=== PATIENT | male | born 1965 | race Caucasian/White ===

== ENCOUNTER 2021-07-04 12:29 | Emergency (ER) | payer MEDICARE, MEDICAID, SELFPAY ==
[2021-07-04 12:29] VITALS: BP 136/102; PULSE 115; RESP 18; TEMP 36.4; O2SAT 99; BMI 25.8
--- NOTE | 2021-07-04 12:55 | EX.ED.DYSGE1 ---
HPI History of Present Illness Chief Complaint: Nosebleed Detail of Chief Complaint: Epistaxis right side Informant: other Onset/Context/Timing Onset: Today Context: Sudden Onset Timing: Intermittent Quality: Blood from right naris Location: Right naris Current Severity: Mild Maximum Severity: Moderate Worsened by: Suspect self-induced/trauma Relieved by: Stops on its own Associated Symptoms Associated Symptoms: Unable to determine because of cognitive impairment Narrative Narrative: Patient is a cognitively impaired middle-age male who presents with intermittent acute bleeding from the right naris. Uncertain whether this is trauma induced. Staff is suspicious that he is picking at it and may have a laceration. History is limited because of his cognitive impairment Prior similar symptoms: No Recent Illness/Hospitalization: No PFSH PFSH Medical History no medical history no medical history Home Medications Trazodone Hcl 150 mg PO QHS 06/14/14 [History Last Taken Unknown] gabapentin 300 mg PO QHS 06/14/14 [History Last Taken Unknown] gabapentin 600 mg PO BID 06/14/14 [History Last Taken Unknown] hydroxyzine pamoate 50 mg PO BID 06/14/14 [History Last Taken Unknown] risperidone [Risperdal M-Tab] 1 mg PO 4X/DAY 06/14/14 [History Last Taken Unknown] simvastatin 20 mg PO QHS 06/14/14 [History Last Taken Unknown] valproic acid [Depakene] 250 mg PO TID 06/14/14 [History Last Taken Unknown] valproic acid [Depakene] 500 mg PO QHS 06/14/14 [History Last Taken Unknown] Allergy/AdvReac Type Severity Reaction Status Date / Time No Known Allergies Allergy Verified 07/04/21 12:31 Social History (Updated 07/04/21 @ 12:[address] Carl Delgado MD) household members: other housing: other details: senior living Smoking Status: Never smoker substance use type: does not use ROS ROS ED Review of Systems ROS Unobtainable: due to mental status Constitutional Constitutional ED: Denies fever(s) Eyes Eyes: Denies change in vision ENT ENT ED: Denies ear pain, rhinorrhea or sore throat Cardiovascular Cardiovascular: Denies chest pain Respiratory/Chest Respiratory/Chest: Denies cough or dyspnea Gastrointestinal Gastrointestinal: Denies diarrhea or vomiting Hematologic/Lymphatic Hematologic/Lymphatic: Denies anemia, easy bleeding or easy bruising EXAM Physical Exam Const Vital Signs: 07/04/21 12:29 Temperature 97.5 F L Temperature Source Temporal Pulse Rate 115 H Respiratory Rate 18 Blood Pressure 136/102 H Blood Pressure Mean 113 Pulse Ox 99 Oxygen Delivery Method Room Air Positive well nourished and well developed General Appearance ED: well developed and NAD; Negative for cyanotic or diaphoretic HEENT Reports moist mucous membranes HEENT Narrative: Blood noted in the right vestibule. There is no obvious source of bleeding over Roselyn box plexus on the right or left. There is no blood in the posterior pharynx. Exam limited because patient rocks and unable to stop him from rocking. Negative for trauma or tenderness Eyes PERRL and EOMs intact bilaterally General Eye ED: Negative for pale conjunctiva or scleral icterus Neck no lymphadenopathy, supple and no JVD Resp normal respiratory effort and clear to auscultation bilaterally Cardio regular rate, regular rhythm, S1 normal heart sound, S2 normal heart sound and no murmurs Neuro No oriented x3 Sensorium / Orientation: alert Skin no rashes or lesions noted and no wounds MDM MDM MDM Narrative Medical decision making narrative: Patient with epistaxis on the right. Presently there is no bleeding. We will have nurse apply clip and reevaluate in 15 minutes. Patient was not reassessed until 1455. He has had no further bleeding. Appears that the bleeding is due to self-inflicted trauma to the right vestibule. Will discharge to home since he has not had bleeding since the initial exam. Discharge Plan Triage Chief Complaint: Nosebleed ED Provider: Carl Delgado Dx/Rx/DC Orders Clinical Impression: Right-sided epistaxis Instructions: ED Epistaxis (Adult) Prescriptions: No Action valproic acid [Depakene] 250 MG capsule 500 mg PO QHS RF: 0 valproic acid [Depakene] 250 MG capsule 250 mg PO TID RF: 0 simvastatin 20 MG tablet 20 mg PO QHS RF: 0 gabapentin 300 MG capsule 300 mg PO QHS RF: 0 gabapentin 300 MG capsule 600 mg PO BID RF: 0 hydroxyzine pamoate 25 MG capsule 50 mg PO BID RF: 0 risperidone [Risperdal M-TAB] 1 MG tablet,disintegrating 1 mg PO 4X/DAY RF: 0 Trazodone Hcl 150 MG tablet 150 mg PO QHS RF: 0 Primary Care Provider: Ofe Erwin Referrals: Ofe Erwin MD [Primary Care Provider] - As Needed Disposition Disposition: Home, Self Care
== END 2021-07-04 16:21 | disposition home or self-care (01) ==
PROVIDERS: Emergency Provider Emergency Medicine; PCP Internal Medicine
DX: R04.0 Epistaxis (principal); Z79.899 Other long term (current) drug therapy
CPT/HCPCS: 30901; 99282

== ENCOUNTER → 2024-09-02 | Outpatient (CLI) | payer MEDICARE, MEDICAID, SELFPAY ==
[2024-09-02 12:41] LABS: ALB/GLOB Ratio 0.9 RATIO (0.9-2.4); AST(SGOT) 26 U/L (15-37); Alanine Aminotransfer ALT/SGPT 22 U/L (16-61); Albumin, Serum 3.7 g/dL (3.2-5.0); Alkaline Phosphatase 65 U/L (45-117); Anion Gap 11 (5-15); BUN 11 mg/dL (7-18); BUN/Creat Ratio 17.3 RATIO (10-20); Calcium,Total 9.6 mg/dL (8.5-10.1); Chloride 105 mmol/L (98-107); Creatinine, Serum 0.64 mg/dL (0.70-1.30); EST Glomerular Filtration Rate 137 mL/min (>60); Est Glom Filt Rate - Afr Amer 165 mL/min (>60); Globulin 4.1 g/dL (2.2-4.2); Glucose 82 mg/dL (74-106); Potassium 4.7 mmol/L (3.5-5.1); Protein, Total 7.8 g/dL (6.4-8.2); Sodium Level 140 mmol/L (136-145); Valproic Acid (Depakene) Level 86 ug/mL (50-100)
== END | disposition home or self-care (01) ==
LOC: LABSPEC 08:55
PROVIDERS: PCP Internal Medicine; Visit Provider Internal Medicine
DX: F29 Unspecified psychosis not due to a substance or known physiological condition (principal)
CPT/HCPCS: 80053; 80164

== ENCOUNTER → 2025-03-05 | Outpatient (CLI) | payer MEDICARE, MEDICAID, SELFPAY ==
[2025-03-05 17:53] LABS: Hematocrit 45.5 % (40-54); Hemoglobin 15.2 g/dL (13.0-16.5); Mean Corp Hgb Conc 33.4 g/dL (32-36); Mean Corpuscular Volume 92.9 fL (80-94); Mean Platelet Vol. 11.7 fl (6.2-12.0); Platelet Count 217 K/mm3 (150-450); RBC Distribution Width CV 12.7 % (11.6-14.6); RBC Distribution Width SD 43.2 fl (35.1-43.9); Red Blood Count 4.90 M/mm3 (4.6-6.2); White Blood Count 12.6 K/mm3 (4.4-11.0)
[2025-03-05 20:57] LABS: Valproic Acid (Depakene) Level 76 ug/mL (50-100)
[2025-03-05 20:58] LABS: AST(SGOT) 23 U/L (<=37); Alanine Aminotransfer ALT/SGPT 19 U/L (<=46); Albumin, Serum 4.1 g/dL (3.4-4.8); Alkaline Phosphatase 55 U/L (40-129); Anion Gap 18 (5-15); BUN 13 mg/dL (4-19); BUN/Creat Ratio 24.1 RATIO (10-20); Calcium,Total 9.3 mg/dL (7.6-11.0); Carbon Dioxide 20.1 mmol/L (21.0-32.0); Chloride 102 mmol/L (98-108); Globulin 2.9 g/dL (2.2-4.2); Glucose 63 mg/dL (70-99); Potassium 4.0 mmol/L (3.3-5.1)
== END | disposition home or self-care (01) ==
LOC: LABSPEC 13:51
PROVIDERS: PCP Internal Medicine; Visit Provider Nurse Practitioner Psychiatric/Mental Health
DX: F29 Unspecified psychosis not due to a substance or known physiological condition (principal)
CPT/HCPCS: 80053; 80164; 85027